=== PATIENT | male | born 1995 | race African-American/Black ===

== ENCOUNTER 2020-08-07 19:16 | Emergency (ER) | payer SELFPAY ==
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
[2020-08-07 19:19] VITALS: BP 139/89; PULSE 89; RESP 14; TEMP 36.7; O2SAT 96
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
== END 2020-08-07 20:30 | disposition home or self-care (01) ==
PROVIDERS: Emergency Provider Emergency Medicine
DX: S80.12XA Contusion of left lower leg, initial encounter (principal); W22.8XXA Striking against or struck by other objects, initial encounter
CPT/HCPCS: 73562; 99283